=== PATIENT | male | born 1990 | race Two or more races ===

== ENCOUNTER 2017-10-28 17:55 | Emergency (ER) | payer MEDICAID ==
[~2017-10-28] VITALS: Ht 172.7 cm; Wt 68.0 kg
[2017-10-28] MEDS ORDERED: HYDROCODONE/ACETAMINOPHEN 5/325MG TABLET PO ONE (20:30)
[2017-10-28 21:30] VITALS: BP 126/82
== END 2017-10-28 21:46 | disposition home or self-care (01) ==
LOC: ER 17:55
DX: S02.609A Fracture of mandible, unspecified, initial encounter for closed fracture (principal); F17.200 Nicotine dependence, unspecified, uncomplicated; Y04.0XXA Assault by unarmed brawl or fight, initial encounter; Y93.89 Activity, other specified; Y92.89 Other specified places as the place of occurrence of the external cause; Y99.8 Other external cause status
CPT/HCPCS: 70110; 99284

== ENCOUNTER 2019-11-06 12:01 | Emergency (ER) | payer SELFPAY ==
[~2019-11-06] VITALS: Ht 172.7 cm; Wt 75.0 kg
[2019-11-06] MEDS ORDERED: KETOROLAC 60MG/2ML VIAL IM ONE (16:45)
[2019-11-06 17:20] VITALS: BP 165/96
== END 2019-11-06 17:53 | disposition home or self-care (01) ==
LOC: ER 15:55
DX: N50.812 Left testicular pain (principal)
CPT/HCPCS: 76870; 93976; 96372; 99284; J1885